=== PATIENT | female | born 1970 | race Caucasian/White ===

== ENCOUNTER 2017-04-25 14:00 | Outpatient (RCR) | payer OTHER, MEDICARE ==
[~2017-04-25 14:00] MED LIST: AVINZA30 MG PO; CARAFATE 1GM1 G PO; CERTRALINE PO; CITALOPRAM40 MG PO; COZAAR 50MG50 MG/TAB PO; DILAUDID 4MG TAB4 MG PO; HCTZ12.5TAB PO; INDERAL40 MG PO; LEXAPRO20 MG PO; MULTIPLE VITAMI1 CAP PO; NEURONTIN300 MG/CAP PO; NORCO 325 MG-51 TAB PO; PERCOCET 325 MG1 TA2 PO; PERCOCET 5/321 UDTAB PO; PRIL40 PO; VITAMIN C BUFF500 MG PO; ZOFRAN ODT4 MG PO
== END 2017-05-02 ==
LOC: WSPT
DX: S73.191A Other sprain of right hip, initial encounter (principal); M25.851 Other specified joint disorders, right hip; Z96.641 Presence of right artificial hip joint
CPT/HCPCS: G8978-GP; G8979-GP

== ENCOUNTER 2017-06-14 12:30 | Outpatient (RCR) | payer OTHER, MEDICARE | END 2017-07-05 12:41 | LOC: WSPT 12:30 | DX: S73.191D Other sprain of right hip, subsequent encounter (principal); M25.851 Other specified joint disorders, right hip; M76.891 Other specified enthesopathies of right lower limb, excluding foot; Z98.890 Other specified postprocedural states | CPT/HCPCS: G8978-GP; G8979-GP ==

== ENCOUNTER → 2019-01-06 | Outpatient (CLI) | payer MEDICARE | LOC: COL.RAD 09:28 | DX: N94.6 Dysmenorrhea, unspecified (principal); N85.00 Endometrial hyperplasia, unspecified ==

== ENCOUNTER → 2020-06-28 | Outpatient (CLI) | payer MEDICARE ==
[~2020-06-28] MED LIST changes: +CEPHALEXIN500 M1 PO
== END ==
LOC: MC.RAD 14:35
DX: Z12.31 Encounter for screening mammogram for malignant neoplasm of breast (principal)

== ENCOUNTER → 2021-08-25 | Outpatient (CLI) | payer MEDICARE | LOC: COL.RAD 06:45 | DX: M47.22 Other spondylosis with radiculopathy, cervical region (principal); M50.20 Other cervical disc displacement, unspecified cervical region; M51.24 Other intervertebral disc displacement, thoracic region ==